=== PATIENT | male | born 1975 | race Caucasian/White ===

== ENCOUNTER 2022-01-10 19:12 | Emergency (ER) | payer BC, MEDICAID ==
[~2022-01-10] VITALS: Ht 172.7 cm; Wt 86.5 kg
[2022-01-10 19:40] VITALS: BP 137/80
[2022-01-10] MEDS ORDERED: ACETAMINOPHEN 325MG TABLET PO ONE (22:00)
[2022-01-10 22:55] LABS: BASOPHILS % 0.8 % (0.0-2.0); EOSINOPHILS % 1.9 % (0.0-5.0); HEMATOCRIT. 46.6 % (42.0-52.0); HEMOGLOBIN. 15.3 g/dL (14.0-18.0); LYMPHOCYTES % 30.6 % (20.0-50.0); MEAN CORPUSCULAR HEMOGLOBIN 29.4 pg (28.0-32.0); MEAN CORPUSCULAR VOLUME 89.6 fL (80.0-94.0); MEAN PLATELET VOLUME 10.2 fl (7.4-10.4); MONOCYTES % 6.6 % (2.0-8.0); NEUTROPHILS % 60.1 % (40.0-76.0); PLATELET 244 x1000/uL (130-400); RED BLOOD CELL COUNT 5.21 mill/uL (4.7-6.1); RED CELL DISTRIBUTION WIDTH 13.6 % (11.6-14.6)
[2022-01-10 23:01] LABS: CHLORIDE 106 mEq/L (98-107)
[2022-01-11] MEDS ORDERED: DIPH25CA83 MT (00:45)
[2022-01-11] MEDS ORDERED: KETOROLAC 60MG/2ML VIAL IM NR (00:45)
[2022-01-11] MEDS ORDERED: AMOX1TAB16 MT (00:45)
== END 2022-01-11 00:54 | disposition home or self-care (01) ==
LOC: ER 19:25
DX: J01.90 Acute sinusitis, unspecified (principal); R63.1 Polydipsia; R42 Dizziness and giddiness; R51.9 Headache, unspecified
CPT/HCPCS: 36415; 80053; 82962; 85025; 99284

== ENCOUNTER 2022-09-06 12:30 | Emergency (ER) | payer BC ==
[~2022-09-06] VITALS: Ht 170.2 cm; Wt 84.0 kg
[~2022-09-06 12:30] MED LIST: AMOX1TAB16 MT; DIPH25CA83 MT
[2022-09-06] MEDS ORDERED: LORA5SOL6 MT (14:51)
[2022-09-06 15:06] VITALS: BP 133/78
== END 2022-09-06 15:08 | disposition home or self-care (01) ==
LOC: ER 12:49
DX: R05.9 Cough, unspecified (principal)
CPT/HCPCS: 71045; 99283

== ENCOUNTER 2022-09-16 08:34 | Emergency (ER) | payer BC ==
[~2022-09-16] VITALS: Ht 170.2 cm; Wt 89.0 kg
[~2022-09-16 08:34] MED LIST changes: +LORA5SOL6 MT
[2022-09-16 08:56] VITALS: BP 126/79
[2022-09-16 09:35] LABS: BASOPHILS % 0.6 % (0.0-2.0); EOSINOPHILS % 3.3 % (0.0-5.0); HEMATOCRIT. 46.4 % (42.0-52.0); HEMOGLOBIN. 15.7 g/dL (14.0-18.0); LYMPHOCYTES % 22.8 % (20.0-50.0); MEAN CORPUSCULAR HEMOGLOBIN 29.6 pg (28.0-32.0); MEAN CORPUSCULAR VOLUME 87.3 fL (80.0-94.0); MEAN PLATELET VOLUME 9.5 fl (7.4-10.4); MONOCYTES % 8.7 % (2.0-8.0); NEUTROPHILS % 64.6 % (40.0-76.0); PLATELET 250 x1000/uL (130-400); RED BLOOD CELL COUNT 5.31 mill/uL (4.7-6.1); RED CELL DISTRIBUTION WIDTH 13.5 % (11.6-14.6)
[2022-09-16 09:41] LABS: CHLORIDE 108 mEq/L (98-107)
[2022-09-16] MEDS ORDERED: LOPE2CAP MT (10:47)
== END 2022-09-16 11:09 | disposition home or self-care (01) ==
LOC: ER 08:34
DX: K52.9 Noninfective gastroenteritis and colitis, unspecified (principal)
CPT/HCPCS: 36415; 80053; 85025; 99283

== ENCOUNTER 2024-07-26 17:49 | Emergency (ER) | payer BC ==
[~2024-07-26] VITALS: Ht 170.2 cm; Wt 83.9 kg
[~2024-07-26 17:49] MED LIST changes: +LOPE2CAP MT
[2024-07-26 17:58] VITALS: O2SAT 100
[2024-07-26] MEDS: DEXAMETHASONE 10 MG/ML VIAL PO ONE (19:44)
[2024-07-26 19:46] VITALS: BP 145/72; PULSE 87; RESP 15; TEMP 37.11408; O2SAT 100
== END 2024-07-26 19:47 | disposition home or self-care (01) ==
LOC: ER 17:49
DX: R05.9 Cough, unspecified (principal); Z79.899 Other long term (current) drug therapy
CPT/HCPCS: 99283; 71045; J1100